=== PATIENT | male | born 1995 | race Caucasian/White ===

== ENCOUNTER 2016-12-08 20:44 | Emergency (ER) | payer BC ==
[2016-12-08 21:08] VITALS: BP 112/87; PULSE 89; RESP 16; TEMP 97.9
--- NOTE | 2016-12-08 21:15 | ED ---
Recheck HPI - General Chief Complaint: Recheck/Abnormal Lab/Rx Stated Complaint: diabetic med refill Time Seen by Provider: 12/08/16 21:09 Source: patient, RN notes reviewed Mode of arrival: ambulatory Limitations: no limitations - History of Present Illness Initial Comments: 21-year-old male who is a type I diabetic presents to the emergency department needing his insulin refilled. Patient states that he changed administrative services director and she went to have his insulin at the pharmacy the evening emergency dose however the doctor still has not improved for him to have a normal dose and he needs a prescription for number dose until he can see his administrative services director. Patient states he is having no symptoms. Patient states he has not insulin left to make another about half day. Patient states that he is just here for the refill. Patient has no complaints.Patient denies any recent fever, chills, shortness of breath, chest pain, back pain, abdominal pain, nausea vomiting, numbness or tingling, dysuria or hematuria, constipation or diarrhea, headaches or visual changes, or any other current symptoms. - Related Data Previous Rx's Medication Instructions Recorded INSULIN LISPRO (humaLOG) [humaLOG] 0 units SQ DIRECTED 7 Days 12/08/16 Allergies Allergy/AdvReac Type Severity Reaction Status Date / Time No Known Allergies Allergy Verified 12/08/16 21:08 Review of Systems ROS Statement: Those systems with pertinent positive or pertinent negative responses have been documented in the HPI. ROS Other: All systems not noted in ROS Statement are negative. Past Medical History Past Medical History: Diabetes Mellitus History of Any Multi-Drug Resistant Organisms: None Reported Past Surgical History: No Surgical Hx Reported Past Anesthesia/Blood Transfusion Reactions: No Reported Reaction Past Psychological History: No Psychological Hx Reported Smoking Status: Current every day smoker Past Alcohol Use History: Occasional Past Drug Use History: None Reported General Exam Limitations: no limitations General appearance: alert, in no apparent distress ENT exam: Present: normal exam, mucous membranes moist Neck exam: Present: normal inspection. Absent: tenderness, meningismus, lymphadenopathy Respiratory exam: Present: normal lung sounds bilaterally. Absent: respiratory distress, wheezes, rales, rhonchi, stridor Cardiovascular Exam: Present: regular rate, normal rhythm, normal heart sounds. Absent: systolic murmur, diastolic murmur, rubs, gallop, clicks Neurological exam: Present: alert, oriented X3 Psychiatric exam: Present: normal affect, normal mood Skin exam: Present: warm, dry, intact, normal color. Absent: rash Course Vital Signs 12/08/16 21:06 Temperature 97.9 F Pulse Rate 89 Respiratory 16 Rate Blood Pressure 112/87 O2 Sat by Pulse 98 Oximetry Medical Decision Making - Medical Decision Making 21-year-old male presents for medication refill. This time is appropriate. This time we will give the patient prescription for Humalog. We discussed follow-up with administrative services director to use that as he has the past. Patient stated he understood and all his questions have been answered. Patient will be discharged home. Disposition Clinical Impression: Encounter for medication refill Disposition: HOME SELF-CARE Condition: Stable Instructions: Type 1 Diabetes in Adults (ED) Additional Instructions: Please use medication as discussed. Please follow up with family doctor if symptoms have not improved over the next two days. Please return to the emergency room if your symptoms increase or worsen or for any other concerns. Prescriptions: INSULIN LISPRO (humaLOG) [humaLOG] 0 units SQ DIRECTED 7 Days Referrals: Jovi Rudd MD [Primary Care Provider] - 1-2 days Time of Disposition: 21:16
[2016-12-08 21:17] LABS: Glucose,Whole Blood 195 mg/dL (75-99)
== END 2016-12-08 21:23 | disposition home or self-care (01) ==
LOC: EC 20:44
DX: Z76.0 Encounter for issue of repeat prescription (principal); E11.9 Type 2 diabetes mellitus without complications; F17.200 Nicotine dependence, unspecified, uncomplicated; Z79.4 Long term (current) use of insulin
CPT/HCPCS: 36415; 99282

== ENCOUNTER 2017-03-14 16:33 | Emergency (ER) | payer BC ==
[2017-03-14 16:38] VITALS: BP 116/72; PULSE 88; RESP 16; TEMP 97.5
--- NOTE | 2017-03-14 16:49 | ED ---
General Adult HPI - General Chief complaint: Recheck/Abnormal Lab/Rx Stated complaint: Insulin Issue Time Seen by Provider: 03/14/17 16:39 Source: patient, RN notes reviewed Mode of arrival: ambulatory Limitations: no limitations - History of Present Illness Initial comments: Patient 21-year-old male sitting a past medical history for diabetes, who presents emergency room today with a chief complaint of needing medication refill for his insulin. He states his resident manager was closed today as it is a holiday. States that he does have an insulin pump did not realize it was running somewhat low. States that he was unable to get a new prescription L he has partially 30 units left. Patient states uses Humalog. He denies any other complaints symptoms. Patient denies any recent fever, chills, shortness of breath, chest pain, back pain, abdominal pain, nausea or vomiting, numbness or tingling, dysuria or hematuria, constipation or diarrhea, headaches or visual changes, or any other complaints. - Related Data Home Medications Medication Instructions Recorded Confirmed INSULIN LISPRO (HumaLOG) [HumaLOG] 40 units SQ DAILY 12/08/16 12/08/16 Multivitamins, Thera [Multivitamin 1 tab PO DAILY 12/08/16 12/08/16 (formulary)] Previous Rx's Medication Instructions Recorded INSULIN LISPRO (humaLOG) [humaLOG] 0 units SQ DIRECTED 7 Days 12/08/16 INSULIN LISPRO (For Pump) [humaLOG 40 units SQ-PUMP DAILY #2 vial 03/14/17 (For Pump)] Allergies Allergy/AdvReac Type Severity Reaction Status Date / Time No Known Allergies Allergy Verified 03/14/17 16:38 Review of Systems ROS Statement: Those systems with pertinent positive or pertinent negative responses have been documented in the HPI. ROS Other: All systems not noted in ROS Statement are negative. Past Medical History Past Medical History: Diabetes Mellitus History of Any Multi-Drug Resistant Organisms: None Reported Past Surgical History: No Surgical Hx Reported Past Anesthesia/Blood Transfusion Reactions: No Reported Reaction Past Psychological History: No Psychological Hx Reported Smoking Status: Current every day smoker Past Alcohol Use History: Occasional Past Drug Use History: None Reported General Exam - General Exam Comments Initial Comments: General: The patient is awake and alert, in no distress, and does not appear acutely ill. Eye: Pupils are equal, round and reactive to light, extra-ocular movements are intact. No nystagmus. There is normal conjunctiva bilaterally. No signs of icterus. Ears, nose, mouth and throat: There are moist mucous membranes and no oral lesions. Neck: The neck is supple, there is no tenderness or JVD. Cardiovascular: There is a regular rate and rhythm. No murmur, rub or gallop is appreciated. Respiratory: Lungs are clear to auscultation, respirations are non-labored, breath sounds are equal. No wheezes, stridor, rales, or rhonchi. Musculoskeletal: Normal ROM, no tenderness. Strength 5/5. Sensation intact. Pulses equal bilaterally 2+. Neurological: A&O x 3. CN II-XII intact, There are no obvious motor or sensory deficits. Coordination appears grossly intact. Speech is normal. Skin: Skin is warm and dry and no rashes or lesions are noted. Psychiatric: Cooperative, appropriate mood & affect, normal judgment. Limitations: no limitations Course Vital Signs 03/14/17 16:36 Temperature 97.5 F L Pulse Rate 88 Respiratory 16 Rate Blood Pressure 116/72 O2 Sat by Pulse 99 Oximetry Disposition Clinical Impression: Medication refill Disposition: HOME SELF-CARE Condition: Good Instructions: Medicine Refill (ED) Additional Instructions: Please follow-up with the resident manager tomorrow as discussed. Please return to emergency room if any symptoms increase or worsen or for concerns. Prescriptions: INSULIN LISPRO (For Pump) [humaLOG (For Pump)] 40 units SQ-PUMP DAILY #2 vial Referrals: Jovi Rudd MD [Primary Care Provider] - 1-2 days Time of Disposition: 16:44
== END 2017-03-14 17:07 | disposition home or self-care (01) ==
LOC: EC 16:33
DX: Z76.0 Encounter for issue of repeat prescription (principal); E11.9 Type 2 diabetes mellitus without complications; F17.200 Nicotine dependence, unspecified, uncomplicated; Z79.4 Long term (current) use of insulin
CPT/HCPCS: 99281

== ENCOUNTER → 2021-10-01 | Outpatient (CLI) | payer BC ==
[~2021-10-01] MED LIST: SODIUM CHLORIDE 0.9% 50 ML IVPB NR; SODIUM CHLORIDE 0.9% 500 ML 500 ML in EMPTY BAG 1 BAG IV PRN; SOTROVIMAB (EUA) 500 MG in SODIUM CHLORIDE 0.9% 100 ML IVPB NR
[2021-10-01 15:06] VITALS: RESP 16; TEMP 98.2
[2021-10-01 16:01] VITALS: BP 101/69; PULSE 84
== END ==
LOC: PROCWHC3 14:09
PROVIDERS: ATTEND Family Medicine
DX: U07.1 COVID-19 (principal); E11.9 Type 2 diabetes mellitus without complications; F17.200 Nicotine dependence, unspecified, uncomplicated
CPT/HCPCS: 96360; Q0247; M0247